=== PATIENT | female | born 1960 | race Caucasian/White ===

== ENCOUNTER 2019-01-06 16:47 | Emergency (ER) | payer SELFPAY ==
[~2019-01-06] VITALS: Ht 172.7 cm; Wt 68.0 kg
[~2019-01-06 16:47] MED LIST: CIPR500T94 PO; NITR100C62 PO; ONDA4TAB7 PO; OXYC1TAB15 PO; OXYC5CAP PO; PANT40TA3 PO; PHEN-318 PO; TRAM50TA PO; propanolol
[2019-01-06 17:47] LABS: BASO % 1 % (0-3); BILIRUBIN,URINE NEGATIVE (NEG); CLARITY,URINE CLEAR; COLOR,URINE YELLOW; EOS # 0.2 x10^3/uL (0.0-0.7); EOS % 3 % (0-3); HEMATOCRIT 40.2 % (36.0-47.0); HEMOGLOBIN 13.8 g/dL (12.0-15.5); LYMPH # 1.5 x10^3/uL (1.0-4.8); LYMPH % 28 % (24-48); MEAN CORPUSCULAR HEMOGLOBIN 33 pg (25-35); MEAN CORPUSCULAR HGB CONC 34 g/dL (31-37); MEAN CORPUSCULAR VOLUME 95 fL (79-100); MONO # 0.7 x10^3/uL (0.0-1.1); MONO % 12 % (0-9); NEUT # 3.1 x10^3uL (1.8-7.7); NEUT % 56 % (31-73); NITRITE,URINE NEGATIVE (NEG); PH,URINE 6.5; PLATELET COUNT 233 x10^3/uL (140-400); PROTEIN,URINE NEGATIVE (NEG-TRACE); RED BLOOD COUNT 4.24 x10^6/uL (3.50-5.40); UROBILINOGEN,URINE 0.2 mg/dL (0.2 mg/dL); WHITE BLOOD COUNT 5.5 x10^3/uL (4.0-11.0)
[2019-01-06] MEDS ORDERED: MORPHINE SULFATE 4 MG/ML VIAL. IV ONE ×2 (18:00→20:00)
[2019-01-06] MEDS ORDERED: IV NORMAL SALINE 1000ML BAG 1,000 ML IV ONE (18:00)
[2019-01-06] MEDS ORDERED: ONDANSETRON PF 4 MG/2 ML VIAL. IV ONE (18:00)
[2019-01-06 18:01] LABS: CALCIUM 8.9 mg/dL (8.5-10.1); CREATININE 0.8 mg/dL (0.6-1.0); GFR 73.9; POTASSIUM 3.2 mmol/L (3.5-5.1)
[2019-01-06 18:07] LABS: ALBUMIN 3.5 g/dL (3.4-5.0); ALBUMIN/GLOBULIN RATIO 0.9 (1.0-1.7); TOTAL BILIRUBIN 0.2 mg/dL (0.2-1.0); TOTAL PROTEIN 7.5 g/dL (6.4-8.2)
[2019-01-06 18:14] LABS: BACTERIA,URINE 0 /HPF (0-FEW); RBC,URINE 0 /HPF (0-2); WBC,URINE 0 /HPF (0-4)
--- NOTE | 2019-01-06 18:15 | PHYS DOC ---
Past Medical History Past Medical History: Arrhythmia, Kidney Stone, Pancreatitis, UTI, Other Additional Past Medical Histor: Alport Syndrome,EBSL (SAM VILLEGAS APRN) Past Surgical History: Appendectomy, Cholecystectomy, Hysterectomy Additional Past Surgical Histo: bladder sling, breast augmentation, knee (SAM VILLEGAS APRN) Alcohol Use: None Drug Use: None (SAM VILLEGAS APRN) Adult General Chief Complaint Chief Complaint: ABDOMINAL PAIN HPI HPI Patient is a 58 year old female with a history of chronic pancreatitis who presents to the emergency department with complaints of right upper quadrant and epigastric pain with nausea, vomiting, and diarrhea for the last 3 days. Patient states that the symptoms began after eating some fried catfish. She denies any recent alcohol ingestion, or drug use. Patient states she is also had a fever of 99-100. She denies any dysuria, sore throat, cough, shortness of breath, ear pain, or rectal bleeding. Currently she rates her pain 8 out of 10 on the pain scale, there are no alleviating factors. (SAM VILLEGAS APRN) Review of Systems Review of Systems Constitutional: See history of present illness Eyes: Denies change in visual acuity, redness, or eye pain [] HENT: Denies nasal congestion or sore throat [] Respiratory: Denies cough or shortness of breath [] Cardiovascular: No additional information not addressed in HPI [] GI: See history of present illness : Denies dysuria or hematuria [] Musculoskeletal: Denies back pain or joint pain [] Integument: Denies rash or skin lesions [] Neurologic: Denies headache, focal weakness or sensory changes [] Complete systems were reviewed and found to be within normal limits, except as documented in this note. (SAM VILLEGAS APRN) Current Medications Current Medications Current Medications Medications (Trade) Dose Ordered Sig/Daria Start Time Stop Time Status Last Admin Dose Admin Morphine Sulfate (Morphine Sulfate) 4 mg 1X ONCE 01/06/19 20:00 01/06/19 20:01 DC 01/06/19 19:54 4 MG Ondansetron HCl (Zofran) 4 mg 1X ONCE 01/06/19 18:00 01/06/19 18:01 DC 01/06/19 18:04 4 MG Sodium Chloride 1,000 ml @ 1,000 mls/hr 1X ONCE 01/06/19 18:00 01/06/19 18:59 DC 01/06/19 18:04 1,000 MLS/HR (CURTIS CASTELLANOS DO) Allergies Allergies Allergies Coded Allergies Type Severity Reaction Last Updated Verified Iodinated Contrast- Oral and IV Dye Allergy Intermediate 04/30/16 Yes ciprofloxacin Allergy Intermediate 04/30/16 Yes I S O L A T I O N *CONTACT* Allergy Unknown 05/03/16 Yes (CURTIS CASTELLANOS DO) Physical Exam Physical Exam Constitutional: Well developed, well nourished, no acute distress, non-toxic appearance. [] HENT: Normocephalic, atraumatic, bilateral external ears normal, nose normal. [] Eyes: conjunctiva normal, no discharge. [] Neck: Normal range of motion, no stridor. [] Cardiovascular:Heart rate regular rhythm, no murmur [] Lungs & Thorax: Bilateral breath sounds clear to auscultation [] Abdomen: Bowel sounds normal, soft, RUQ and epigastric tenderness to palpation, no rebound, no guarding, no masses, no pulsatile masses. [] Skin: Warm, dry, no erythema, no rash. [] Back: No tenderness Extremities: No cyanosis, ROM intact, no edema. [] Neurologic: Alert and oriented X 3, no focal deficits noted. [] Psychologic: Affect normal, judgement normal, mood normal. [] (SAM VILLEGAS APRN) Current Patient Data Vital Signs Vital Signs Date Time Temp Pulse Resp B/P (MAP) Pulse Ox O2 Delivery O2 Flow Rate FiO2 01/06/19 21:18 98 18 153/92 (112) 99 01/06/19 17:15 99.4 99.4 (CURTIS CASTELLANOS DO) Lab Values Laboratory Tests Test 01/06/19 17:30 White Blood Count 5.5 x10^3/uL (4.0-11.0) Red Blood Count 4.24 x10^6/uL (3.50-5.40) Hemoglobin 13.8 g/dL (12.0-15.5) Hematocrit 40.2 % (36.0-47.0) Mean Corpuscular Volume 95 fL (79-100) Mean Corpuscular Hemoglobin 33 pg (25-35) Mean Corpuscular Hemoglobin Concent 34 g/dL (31-37) Red Cell Distribution Width 13.0 % (11.5-14.5) Platelet Count 233 x10^3/uL (140-400) Neutrophils (%) (Auto) 56 % (31-73) Lymphocytes (%) (Auto) 28 % (24-48) Monocytes (%) (Auto) 12 % (0-9) H Eosinophils (%) (Auto) 3 % (0-3) Basophils (%) (Auto) 1 % (0-3) Neutrophils # (Auto) 3.1 x10^3uL (1.8-7.7) Lymphocytes # (Auto) 1.5 x10^3/uL (1.0-4.8) Monocytes # (Auto) 0.7 x10^3/uL (0.0-1.1) Eosinophils # (Auto) 0.2 x10^3/uL (0.0-0.7) Basophils # (Auto) 0.0 x10^3/uL (0.0-0.2) Urine Collection Type Unknown Urine Color Yellow Urine Clarity Clear Urine pH 6.5 Urine Specific Helper <=1.005 Urine Protein Negative mg/dL (NEG-TRACE) Urine Glucose (UA) Negative mg/dL (NEG) Urine Ketones (Stick) Negative mg/dL (NEG) Urine Blood Negative (NEG) Urine Nitrite Negative (NEG) Urine Bilirubin Negative (NEG) Urine Urobilinogen Dipstick 0.2 mg/dL (0.2 mg/dL) Urine Leukocyte Esterase Negative (NEG) Urine RBC 0 /HPF (0-2) Urine WBC 0 /HPF (0-4) Urine Bacteria 0 /HPF (0-FEW) Sodium Level 144 mmol/L (136-145) Potassium Level 3.2 mmol/L (3.5-5.1) L Chloride Level 105 mmol/L (98-107) Carbon Dioxide Level 30 mmol/L (21-32) Anion Gap 9 (6-14) Blood Urea Nitrogen 5 mg/dL (7-20) L Creatinine 0.8 mg/dL (0.6-1.0) Estimated GFR (Cockcroft-Gault) 73.9 BUN/Creatinine Ratio 6 (6-20) Glucose Level 78 mg/dL (70-99) Calcium Level 8.9 mg/dL (8.5-10.1) Total Bilirubin 0.2 mg/dL (0.2-1.0) Aspartate Amino Transferase (AST) 26 U/L (15-37) Alanine Aminotransferase (ALT) 24 U/L (14-59) Alkaline Phosphatase 125 U/L (46-116) H Total Protein 7.5 g/dL (6.4-8.2) Albumin 3.5 g/dL (3.4-5.0) Albumin/Globulin Ratio 0.9 (1.0-1.7) L Amylase Level 66 U/L (25-115) Lipase 62 U/L (73-393) L Laboratory Tests 01/06/19 17:30 Laboratory Tests 01/06/19 17:30 (CURTIS CASTELLANOS DO) EKG EKG [] (SAM VILLEGAS APRN) Radiology/Procedures Radiology/Procedures PROCEDURE: CT ABDOMEN PELVIS WO CONTRAST EXAM: CT ABDOMEN/PELVIS WITHOUT CONTRAST. HISTORY: Upper abdominal pain. Nausea/vomiting. TECHNIQUE: Computed tomography of the abdomen and pelvis was performed without intravenous contrast. COMPARISON: 05/10/2016. FINDINGS: Lung windows through the visualized portions of the bases reveal nodular infiltrates in the right lower lobe are consistent with acute or chronic pneumonitis. There are new since 2016. Bronchial wall thickening is consistent with acute or chronic bronchitis. There is a small hiatal hernia. A left breast implant is collapsed. Bone windows reveal no suspicious lesions. The gallbladder is surgically absent. The liver, spleen, and adrenal glands are unremarkable without contrast. There is fatty infiltration of the pancreas without clear inflammation or focal lesion. There are no pathologically enlarged lymph nodes. There are changes of pelvic floor relaxation with a small cystocele. There are no renal or ureteral calculi. There are no suspicious renal lesions. There are extrarenal pelves bilaterally. A small focus of gas is noted in the bladder. There is no evidence of appendicitis. There is no small bowel obstruction. IMPRESSION: 1. An infiltrate in the right lower lobe is consistent with either acute or chronic infection. It is new since 2016. Correlate for acute pneumonia. 2. Small hiatal hernia. 3. Small focus of gas in the bladder. Correlate for recent instrumentation. Pelvic floor relaxation with a small cystocele. [] (SAM VILLEGAS APRN) Course & Med Decision Making Course & Med Decision Making Pertinent Labs and Imaging studies reviewed. (See chart for details) dx: RLL pneumonia, N/V/D ddx: pancreatitis, diverticulitis CT indicated RLL pneumonia. CBC unremarkable, KCL 3.2, lipase 62, CMP otherwise unremarkable, UA normal Pt was given 4 mg of morphine x2 for pain control, 4 mg of zofran, and 1L of NS Prescription written for z-pack, zofran, and 5-day burst of prednisone. Follow up with PCP next week, return to ER if sx worsen. Patient verbalized an understanding of home care, medications, follow-up, and return to ED instructions and was in agreement with the plan of care. [] (SAM VILLEGAS APRN) Dragon Disclaimer Dragon Disclaimer This electronic medical record was generated, in whole or in part, using a voice recognition dictation system. (SAM VILLEGAS APRN) Departure Departure Impression: Primary Impression: Nausea vomiting and diarrhea Additional Impression: Pneumonia Disposition: HOME, SELF-CARE Condition: STABLE Referrals: NO PCP (PCP) Patient Instructions: Nausea and Vomiting, [id number], Pneumonia, Adult Additional Instructions: Fill the prescriptions and use as directed. Recommend clear fluids for the next 24 hours then advance diet at tolerated starting with bland foods. Follow up with your Primary care doctor next week, return to the ER if symptoms worsen. Scripts Prednisone (PREDNISONE) 50 Mg Tablet 1 TAB PO DAILY, #5 TAB 0 Refills Prov: SAM VILLEGAS APRN 01/06/19 Azithromycin (AZITHROMYCIN TABLET) 250 Mg Tablet 1 PKG PO UD, #6 TAB 0 Refills Prov: SAM VILLEGAS APRN 01/06/19 Ondansetron (ONDANSETRON ODT) 4 Mg Tab.rapdis 1 TAB PO PRN Q6-8HRS PRN for NAUSEA/VOMITING, #16 TAB 0 Refills Prov: SAM VILLEGAS APRN 01/06/19 Attending Signature Attending Signature I have reviewed the PA/STAFF CLIMATE SCIENTIST's note and plan of care. I was available for consultation as needed during the patient's visit in the emergency department. I agree with the clinical impression, plan, and disposition. (CURTIS CASTELLANOS DO) Problem Qualifiers Additional Impression: Pneumonia Pneumonia type: due to unspecified organism Laterality: right Lung location: lower lobe of lung Qualified Codes: J18.1 - Lobar pneumonia, unspecified organism SAM VILLEGAS APRN Jan 06, 2019 18:15 CURTIS CASTELALNOS DO Jan 06, 2019 23:52
--- NOTE | 2019-01-06 19:58 | RAD ---
EXAM: CT ABDOMEN/PELVIS WITHOUT CONTRAST. HISTORY: Upper abdominal pain. Nausea/vomiting. TECHNIQUE: Computed tomography of the abdomen and pelvis was performed without intravenous contrast. COMPARISON: 05/10/2016. FINDINGS: Lung windows through the visualized portions of the bases reveal nodular infiltrates in the right lower lobe are consistent with acute or chronic pneumonitis. There are new since 2016. Bronchial wall thickening is consistent with acute or chronic bronchitis. There is a small hiatal hernia. A left breast implant is collapsed. Bone windows reveal no suspicious lesions. The gallbladder is surgically absent. The liver, spleen, and adrenal glands are unremarkable without contrast. There is fatty infiltration of the pancreas without clear inflammation or focal lesion. There are no pathologically enlarged lymph nodes. There are changes of pelvic floor relaxation with a small cystocele. There are no renal or ureteral calculi. There are no suspicious renal lesions. There are extrarenal pelves bilaterally. A small focus of gas is noted in the bladder. There is no evidence of appendicitis. There is no small bowel obstruction. IMPRESSION: 1. An infiltrate in the right lower lobe is consistent with either acute or chronic infection. It is new since 2016. Correlate for acute pneumonia. 2. Small hiatal hernia. 3. Small focus of gas in the bladder. Correlate for recent instrumentation. Pelvic floor relaxation with a small cystocele. *One or more of the following individualized dose reduction techniques were utilized for this examination: 1. Automated exposure control. 2. Adjustment of the mA and/or kV according to patient size. 3. Use of iterative reconstruction technique. Electronically signed by: Eileen Moss MD (01/06/2019 7:55 PM) [facility]
[2019-01-06] MEDS ORDERED: AZIT250T PO (20:42)
[2019-01-06] MEDS ORDERED: ONDA4TAB12 PO (20:46)
[2019-01-06] MEDS ORDERED: AZIT250T6 PO (20:46)
[2019-01-06 21:18] VITALS: BP 153/92
[2019-01-06] MEDS ORDERED: PRED50TA PO (21:42)
== END 2019-01-06 21:19 | disposition home or self-care (01) ==
LOC: ER 16:47
DX: R11.2 Nausea with vomiting, unspecified (principal); R19.7 Diarrhea, unspecified; R10.11 Right upper quadrant pain; R10.13 Epigastric pain; J18.1 Lobar pneumonia, unspecified organism; Z90.49 Acquired absence of other specified parts of digestive tract; Z90.89 Acquired absence of other organs; Z90.710 Acquired absence of both cervix and uterus; Z87.442 Personal history of urinary calculi; Z88.1 Allergy status to other antibiotic agents; Z91.041 Radiographic dye allergy status
CPT/HCPCS: 36415; 74176; 80053; 81001; 82150; 83690; 85025; 96361; 96374; 96375; 96376; 99285; J2270; J2405; J7030